=== PATIENT | female | born 1990 | race Caucasian/White ===

== ENCOUNTER 2017-09-25 20:47 | Outpatient (CLI) | END 2017-09-26 04:35 | disposition left against medical advice (07) ==

== ENCOUNTER 2017-11-07 15:33 | Outpatient (CLI) | END 2017-11-07 21:00 | disposition home or self-care (01) ==

== ENCOUNTER 2017-11-29 17:22 | Outpatient (CLI) | END 2017-11-30 01:20 | disposition home or self-care (01) ==

== ENCOUNTER 2017-12-17 07:37 | Outpatient (CLI) | END 2017-12-17 10:17 | disposition home or self-care (01) ==

== ENCOUNTER 2017-12-30 22:45 | Inpatient (IN) | END 2018-01-01 16:20 | disposition home or self-care (01) | DRG 833 ==

== ENCOUNTER 2018-01-04 14:01 | Outpatient (CLI) | END 2018-01-04 19:00 | disposition home or self-care (01) ==

== ENCOUNTER 2018-01-10 07:43 | Inpatient (IN) | END 2018-01-13 18:50 | disposition home or self-care (01) | DRG 786 ==

== ENCOUNTER 2018-01-27 20:03 | Emergency (ER) | END 2018-01-28 00:11 | disposition home or self-care (01) ==